=== PATIENT | female | born 1980 | race Caucasian/White ===

== ENCOUNTER → 2021-05-09 10:25 | Outpatient (CLI) | payer OTHER, SELFPAY ==
--- NOTE | ~2021-05-09 | MM_ITS ---
EXAMINATION: MM screening [facility] BI w jhoana HISTORY: Screening TECHNIQUE: Craniocaudal and mediolateral oblique 3-D tomosynthesis images were obtained and synthetic 2-D images were generated. CAD analysis was submitted and interpreted. COMPARISON: 01/20/2019 BREAST PARENCHYMAL COMPOSITION: The breasts are heterogeneously dense, which may obscure small masses . FINDINGS: There is a 2.8 cm mass in the upper central aspect of the right breast, middle third. There is a 2.8 cm mass in the mid outer aspect of the left breast, middle third. IMPRESSION: 1. New bilateral breast masses. 2. Additional mammographic views and possible breast ultrasound are recommended. BI-RADS Category 0: Incomplete: Needs additional imaging evaluation. Reviewed, dictated and finalized at location A. IMPRESSION: 1. New bilateral breast masses. 2. Additional mammographic views and possible breast ultrasound are recommended . BI-RADS Category 0: Incomplete: Needs additional imaging evaluation.
== END ==
PROVIDERS: Visit Provider Nurse Practitioner Adult Health
DX: Z12.31 Encounter for screening mammogram for malignant neoplasm of breast (principal); R92.8 Other abnormal and inconclusive findings on diagnostic imaging of breast
CPT/HCPCS: 77063; 77067

== ENCOUNTER → 2021-05-12 08:54 | Outpatient (CLI) | payer OTHER, SELFPAY ==
--- NOTE | ~2021-05-12 | MMUS_ITS ---
EXAMINATION: MM diagnostic jeanette BI w jhoana, US breast BI complete HISTORY: Follow-up bilateral breast masses TECHNIQUE: Additional 3-D tomosynthesis images of the breasts were performed and synthetic 2-D images were generated. CAD analysis was submitted and interpreted. High resolution complete bilateral breas t ultrasound was performed. COMPARISON: 05/09/2021 BREAST PARENCHYMAL COMPOSITION: The breasts are heterogenously dense, which may obscure small masses. FINDINGS: MAMMOGRAPHIC FINDINGS: There is a 2.7 cm mass in the central aspect of the right breast, middle third. There is a 2.9 cm cir cumscribed radiolucent mass in the upper outer quadrant of the left breast, middle third. There are n o suspicious areas of architectural distortion or calcification. ULTRASOUND: Bilateral complete breast ultrasound: There are innumerable bilateral simple and complicated cysts, l argest in the right breast measuring 2.3 cm at 12:00 near the areola in largest in the left breast at 3:00, 7 cm from the nipple measuring 2.7 cm. No suspicious sonographic masses to suggest malignancy. IMPRESSION: 1. No evidence for malignancy in either breast. Cysts correspond to the mass is identified on mammogr aphy. 2. Routine yearly screening mammogram and regular clinical breast examination are recommended. BI-RADS Category 2: Benign finding(s). Reviewed, dictated and finalized at location A. IMPRESSION: 1. No evidence for malignancy in either breast. Cysts correspond to the mass is identified on mammography. 2. Routine yearly screening mammogram and regular clinical breast examination a re recommended. BI-RADS Category 2: Benign finding(s).
== END ==
PROVIDERS: PCP Nurse Practitioner Adult Health; Visit Provider Nurse Practitioner Adult Health
DX: R92.8 Other abnormal and inconclusive findings on diagnostic imaging of breast (principal)
CPT/HCPCS: 76641; 77062; 77066; G0279

== ENCOUNTER 2021-05-30 19:28 | Emergency (ER) | payer OTHER, SELFPAY ==
[2021-05-30 19:35] VITALS: BP 130/84; PULSE 85; RESP 16; TEMP 36.2; O2SAT 100
--- NOTE | 2021-05-30 19:42 | ED.FEMALEGU ---
HPI - Female Genitourinary General Chief complaint: Urogenital-Female Stated complaint: UTI Time Seen by Provider: 05/30/21 19:42 Source: patient Mode of arrival: ambulatory Limitations: no limitations History of Present Illness HPI Narrative: elías Scott is a 40 yo female with HTN, diabetic, migraines, depression, who comes to [facility] for dysuria that started today. Also complaining of left lower back pain Related Data Home Medications Medication Instructions Recorded Confirmed amlodipine 05/30/21 metformin mg PO 05/30/21 phentermine mg 05/30/21 rizatriptan mg 05/30/21 semaglutide [Ozempic] mg SUBCUT 05/30/21 sertraline mg 05/30/21 Allergies Allergy/AdvReac Type Severity Reaction Status Date / Time escitalopram Allergy Unknown Unknown Verified 05/30/21 19:30 lisinopril Allergy Unknown Unknown Verified 05/30/21 19:30 Review of Systems Review of Systems: CONSTITUTIONAL: Denies fever, chills, sweats. EYES: Denies visual changes, redness, discharge. ENT: Denies rhinorrhea, congestion, sore throat, otalgia. CARDIOVASCULAR: Denies chest pain, palpitations, edema. RESPIRATORY: Denies dyspnea, wheezing, cough GASTROINTESTINAL: Denies abdominal pain, nausea, vomiting, diarrhea. GENITOURINARY: Has dysuria, hematuria, abnormal discharge SKIN: Denies rash or itching. NEUROLOGIC: Denies numbness, or focal weakness. PSYCHIATRIC: Denies anxiety or depression. Left lower back pain PMFSH Past Medical History Medical History Depression Diabetes HTN (hypertension) Migraine Family History Family History Father Diabetes mellitus Sibling Hypertension Patient's sister is in good health Mother Patient's mother is in good health Social History Social History Smoking status: Never smoker Alcohol intake: current Comments At time of signature, I agree with nursing past medical, surgical, social and family history. There is no relevant family history pertinent to the presenting complaint. Exam Narrative: GENERAL: This is a well-nourished, well-developed patient, in mild distress. HEAD: normocephalic, atraumatic. EYES: Sclera clear/white. Vision is grossly intact. EARS: External ears normal,. Hearing grossly intact. NOSE: External nose normal without nasal discharge, nares without redness, no rhinorrhea. THROAT: Mucous membranes moist, NECK: Neck supple, CARDIOVASCULAR: Regular rate and rhythm without murmurs, gallops, or rubs. RESPIRATORY: Clear to auscultation. Breath sounds equal bilaterally. No wheezes, rales, or rhonchi. GASTROINTESTINAL: Abdomen soft, SKIN: warm, intact with no suspicious lesions or rash, good texture and turgor. NEURO: awake, alert, and oriented to person, place and time. There were no obvious focal neurologic abnormalities. Steady gait EXTREMITIES: Normal range of motion. BACK: Nontender without deformity- L CVA pain Course Course Emergency Course: [facility] dysuria and low left back pain UA dipstick is negative except for 4+ ketones and bilirubin Started on Keflex 500 mg 1 twice daily x5 days-discussed fluid intake especially is a diabetic and taking ibuprofen or Tylenol for pain if it does not improve she should follow-up with her primary care physician Vital Signs Vital signs: Vital Signs Temperature 97.2 F L 05/30/21 19:35 Pulse Rate 85 05/30/21 19:35 Respiratory Rate 16 05/30/21 19:35 Blood Pressure 130/84 05/30/21 19:35 Pulse Oximetry 100 05/30/21 19:35 Temperature 97.2 F L 05/30/21 19:35 Pulse Rate 85 05/30/21 19:35 Respiratory Rate 16 05/30/21 19:35 Blood Pressure 130/84 05/30/21 19:35 Pulse Oximetry 100 05/30/21 19:35 MDM - Female Genitourinary Differential Diagnosis Differential diagnosis: Likely urinary tract infection, cystiti
== END 2021-05-30 19:58 | disposition home or self-care (01) ==
PROVIDERS: Emergency Provider Nurse Practitioner; PCP Nurse Practitioner Adult Health
DX: R30.0 Dysuria (principal); E11.9 Type 2 diabetes mellitus without complications; I10 Essential (primary) hypertension; F32.9 Major depressive disorder, single episode, unspecified
CPT/HCPCS: 81003; 99213; G0463

== ENCOUNTER 2021-12-15 16:53 | Outpatient (CLI) | payer OTHER, SELFPAY ==
--- NOTE | ~2021-12-15 | XR_ITS ---
XR lumbar spine 2-3V DATE: 12/15/2021 17:28 INDICATION: Low back pain TECHNIQUE: Standing AP, lateral and coned lateral lumbosacral views COMPARISON: None FINDINGS: There is mild levoscoliosis of the lumbar spine. There is mild degenerative disc disease at L1-2, L2-3 and L3-4 with minimal retrolisthesis at L3-4. There is moderately prominent degenerative disc disease at L4-5. No fracture or bone destruction is evident. The lumbar pedicles are intact. Tiny sacral iliac joints appear normal. IUD overlies the mid pelvis. IMPRESSION: Mild levoscoliosis Multilevel mild to moderate degenerative disc disease Minimal retrolisthesis at L3-4 Reviewed, dictated and finalized at location A.
--- NOTE | ~2021-12-15 | XR_ITS ---
XR thoracic spine 2V DATE: 12/15/2021 17:27 INDICATION: Mid back pain TECHNIQUE: Standing AP and lateral views COMPARISON: 12/15/2021 cervical spine FINDINGS: There is slight scoliosis and mild degenerative spurring of the thoracic spine. The thoraci c pedicles are intact. No fracture or bone destruction or dislocation or paraspinal soft tissue thick ening. IMPRESSION: Slight scoliosis and mild degenerative change of the thoracic spine Reviewed, dictated and finalized at location A.
--- NOTE | ~2021-12-15 | XR_ITS ---
XR_CERV2-3V_CR DATE: 12/15/2021 17:27 INDICATION: Neck pain TECHNIQUE: Standing AP, lateral, swimmer's and open-mouth views COMPARISON: None FINDINGS: C1 and C2 are normally aligned and the odontoid process is intact. No fracture or dislocation or locked facet or prevertebral soft tissue swelling. There is mild degenerative disc disease with posterior spurring at C4-5. There is minimal anterolisthesis and moderate degenerative disc disease at C5-6 and C6-7. IMPRESSION: Multilevel degenerative disc disease, most prominent at C5-6 and C6-7, with minimal anter olisthesis at each of these levels Posterior spurring at C4-5 Reviewed, dictated and finalized at Location A. Reviewed, dictated and finalized at location A. IMPRESSION: Multilevel degenerative disc disease, most prominent at C5-6 and C6 -7, with minimal anterolisthesis at each of these levels Posterior spurring at C4-5
== END 2021-12-15 16:54 ==
PROVIDERS: PCP Nurse Practitioner Adult Health; Visit Provider Chiropractor
DX: M54.50 Low back pain, unspecified (principal); M41.86 Other forms of scoliosis, lumbar region; M51.36 Other intervertebral disc degeneration, lumbar region; M50.822 Other cervical disc disorders at C5-C6 level; M43.12 Spondylolisthesis, cervical region; M77.8 Other enthesopathies, not elsewhere classified
CPT/HCPCS: 72040; 72070; 72100

== ENCOUNTER 2022-11-23 17:28 | Emergency (ER) | payer BC, SELFPAY ==
--- NOTE | 2022-11-23 17:29 | ED.URI ---
HPI - URI/Sore Throat General Chief Complaint: Upper Respiratory Infection Stated Complaint: Ears/Sinus Time Seen by Provider: 11/23/22 17:29 Source: patient Mode of arrival: ambulatory Limitations: no limitations History of Present Illness HPI Narrative: Ancelmo is a 41-year-old female patient presenting to clinic today with complaints left ear pain and sinus pressure x6 days. She reports she also had some body aches and chills however no fever. MD elicited complaint: cough, rhinorrhea, nasal congestion, sinus pain and other (Left ear pain) Related Data Home Medications Medication Instructions Recorded Confirmed amlodipine 5 mg tablet 5 mg PO DAILY 05/30/21 11/23/22 metformin 500 mg tablet,extended 500 mg PO BID 05/30/21 11/23/22 release 24 hr Allergies Allergy/AdvReac Type Severity Reaction Status Date / Time lisinopril Allergy Intermediate Swelling Verified 11/23/22 17:37 escitalopram Allergy Unknown Unknown Verified 11/23/22 17:37 Review of Systems Review of Systems: Pertinent positives per HPI. Patient denies any fever, chills, rash, headache, visual changes, dizziness, cough, shortness of breath, chest pain, palpitations, nausea, vomiting, diarrhea, constipation, abdominal pain, or any urinary issues. PMFSH Past Medical History Medical History Depression Diabetes HTN (hypertension) Migraine Family History Family History Father Diabetes mellitus Sibling Hypertension Patient's sister is in good health Mother Patient's mother is in good health Social History Social History Smoking status: Never smoker Alcohol intake: current Comments At the time of my signature, I reviewed and agree with the nursing past medical, surgical, social, and family history. There is no relevant family history pertinent to the patient complaint. Exam Narrative: General: Well-developed, well nourished, in no apparent distress Head: Normocephalic, atraumatic Eyes: Pupils equally round and reactive to light bilaterally, EOM intact, sclera and conjunctive clear, no discharge, lids normal Ears: Right tMs intact and clear, left TM intact, red, bulging, ear canals clear, no drainage, grossly hearing normal. Nose: Nares patent, clear nasal discharge, no inflammation, no sinus tenderness. Mouth: Oral pharynx without lesions or masses, good dentition, MMM. Postnasal drip Neck: Supple, trachea midline, no enlargement of anterior or posterior cervical nodes, no thyroid masses or goiter palpable. Cardio: Regular rate and rhythm, s1 and s2 normal, no murmur appreciated. Resp: Clear to auscultation bilaterally, no rhonchi, rales, wheezing or rubs Course Course Emergency Course: Portions of this record may have been created with voice recognition software. Level of Care: Express Care Visit Vital Signs Vital signs: Vital Signs Temperature 36.8 C 11/23/22 17:35 Pulse Rate 76 11/23/22 17:35 Respiratory Rate 16 11/23/22 17:35 Blood Pressure 135/91 H 11/23/22 17:35 Pulse Oximetry 99 11/23/22 17:35 Oxygen Delivery Room Air 11/23/22 17:35 Temperature 36.8 C 11/23/22 17:35 Pulse Rate 76 11/23/22 17:35 Respiratory Rate 16 11/23/22 17:35 Blood Pressure 135/91 H 11/23/22 17:35 Pulse Oximetry 99 11/23/22 17:35 Oxygen Delivery Room Air 11/23/22 17:35 Vital signs reviewed MDM - URI/Sore Throat MDM Narrative Medical decision making narrative: At the time of the patient resting comfortably on exam table. I suspect patient has upper respiratory infection and left otitis media. Prescription for amoxicillin and prednisone was sent to pharmacy and supportive measures were discussed with the patient she voiced understanding discharge instructions agrees to treatment plan Differential Diagnosis Differen
[2022-11-23 17:35] VITALS: BP 135/91; PULSE 76; RESP 16; TEMP 36.8; O2SAT 99
== END 2022-11-23 17:45 | disposition home or self-care (01) ==
LOC: EXPCOLL 17:31
PROVIDERS: Emergency Provider Nurse Practitioner Family
DX: H66.92 Otitis media, unspecified, left ear (principal); J06.9 Acute upper respiratory infection, unspecified; E11.9 Type 2 diabetes mellitus without complications; I10 Essential (primary) hypertension; F32.A Depression, unspecified; Z79.84 Long term (current) use of oral hypoglycemic drugs
CPT/HCPCS: 99213; G0463

== ENCOUNTER → 2023-09-17 11:15 | Outpatient (CLI) | payer BC, SELFPAY ==
--- NOTE | ~2023-09-17 | MM_ITS ---
EXAMINATION: MM screening jeanette BI w jhoana HISTORY: Screening TECHNIQUE: Craniocaudal and mediolateral oblique 3-D tomosynthesis images were obtained and synthetic 2-D images were generated. CAD analysis was submitted and interpreted. COMPARISON: Comparison to multiple prior studies sequentially, with oldest reviewed study dated 01/20. BREAST PARENCHYMAL COMPOSITION: The breasts are heterogeneously dense, which may obscure small masses . FINDINGS: There are new asymmetries in the upper outer quadrant of the right breast. There are new ma sses in the upper outer quadrant and central aspect of the left breast. There are no suspicious calci fications or architectural distortion. IMPRESSION: 1. New right breast asymmetries and left breast masses. 2. Additional mammographic views and possible breast ultrasound are recommended. BI-RADS Category 0: Incomplete: Needs additional imaging evaluation. Reviewed, dictated and finalized at location A. IFIED SUBSTANCE ABUSE COUNSELOR IMPRESSION: 1. New right breast asymmetries and left breast masses. 2. Additional mammographic views and possible breast ultrasound are recommended . BI-RADS Category 0: Incomplete: Needs additional imaging evaluation.
== END ==
PROVIDERS: PCP Obstetrics & Gynecology; Visit Provider Nurse Practitioner Family
DX: Z12.31 Encounter for screening mammogram for malignant neoplasm of breast (principal); N63.11 Unspecified lump in the right breast, upper outer quadrant; N63.21 Unspecified lump in the left breast, upper outer quadrant; N63.25 Unspecified lump in the left breast, overlapping quadrants
CPT/HCPCS: 77063; 77067

== ENCOUNTER 2023-10-15 09:21 | Outpatient (CLI) | payer OTHER, SELFPAY ==
--- NOTE | ~2023-10-15 | MMUS_ITS ---
EXAMINATION: MM diagnostic jeanette BI w jhoana, US breast BI limited HISTORY: Right breast asymmetry and left breast masses on screening mammogram TECHNIQUE: Additional 3-D tomosynthesis images of the breasts were performed and synthetic 2-D images were generated. CAD analysis was submitted and interpreted. High resolution limited bilateral breast ultrasound was performed. COMPARISON: 09/17/2023, 05/12/2021, 05/09/2021, 01/20/2019 FINDINGS: MAMMOGRAPHIC FINDINGS: Left breast: There is a 1.4 cm oval, circumscribed, equal density mass in the posterior third of the upper outer quadrant of the breast at the 2:00 location, 9 cm from the nipple. Additional smaller mas ses seen in the middle third of the outer breast corresponding to waxing and waning breast cysts. Right breast: There is a return to baseline fibroglandular appearance with spot compression of the ri ght breast in the area questioned on screening mammogram. ULTRASOUND: There are multiple similar appearing bilateral hypoechoic and anechoic masses of the aubrey sts, consistent with benign findings. Left breast: There is a 1.3 cm cyst at the 2:00 location, 8 cm from the nipple corresponding to the m ammographic finding in question. Right breast: There is a 1.4 cm cyst with thin septation at the 10:00 location, 6 cm from the nipple. IMPRESSION: 1. No mammographic or sonographic evidence of malignancy. 2. Recommend routine screening mammography in one year. BI-RADS Category 2: Benign finding(s). Reviewed, dictated and finalized at location A. D TECHNICAL SUPPORT CONSULTANT IMPRESSION: 1. No mammographic or sonographic evidence of malignancy. 2. Recommend routine screening mammography in one year. BI-RADS Category 2: Benign finding(s).
== END 2023-10-15 09:22 ==
PROVIDERS: PCP Nurse Practitioner Family; Visit Provider Nurse Practitioner Family
DX: N63.0 Unspecified lump in unspecified breast (principal); R92.8 Other abnormal and inconclusive findings on diagnostic imaging of breast
CPT/HCPCS: 76642; 77062; 77066; G0279

== ENCOUNTER 2023-10-28 14:49 | Outpatient (CLI) | payer OTHER, SELFPAY ==
--- NOTE | ~2023-10-28 | XR_ITS ---
EXAMINATION: XR lumbar spine 2-3V DATE: 10/28/2023 15:38 INDICATION: Low back pain, unspecified. TECHNIQUE: 3 views of lumbar spine were obtained. COMPARISON: Lumbar spine radiograph 12/15/2021 FINDINGS: There is 10 degrees levoscoliosis of lumbar spine. Vertebral body heights are normal. There is mildly decreased disc height at L3-L4 and L4-L5. There are endplate osteophytes at most levels. T here is multilevel facet joint osteoarthritis, severe in lower lumbar spine. There is an intrauterine device in expected position. IMPRESSION: 1. Mild lumbar spondylosis. 2. Lumbar levoscoliosis. Reviewed, dictated and finalized at location E. OGICAL CHEMIST
== END 2023-10-28 14:50 ==
PROVIDERS: PCP Nurse Practitioner Adult Health; Visit Provider Nurse Practitioner Adult Health
DX: M43.06 Spondylolysis, lumbar region (principal); M41.86 Other forms of scoliosis, lumbar region
CPT/HCPCS: 72100

== ENCOUNTER 2023-12-20 08:27 | Emergency (ER) | payer OTHER, SELFPAY ==
--- NOTE | ~2023-12-20 | XR_ITS ---
XR abdomen/kub 1V DATE: 12/20/2023 09:09 INDICATION: Right flank pain, microscopic hematuria TECHNIQUE: AP view COMPARISON: None FINDINGS: There is an approximately 1.2 x 3 mm linear calcification overlying the right ureterovesica l junction, likely a right distal ureteral or ureterovesical junction small calcified calculus, parti cularly given the history of right flank pain and microscopic hematuria. No other obvious urinary tract calcification is noted. Bilateral pelvic calcified phleboliths. The psoas shadows are intact. No visceromegaly is evident. No evidence of bowel obstruction. Mild lumbar levoscoliosis. IMPRESSION: Small right ureterovesical junction or distal ureteral calcified calculus is suggested Reviewed, dictated and finalized at Location A. Reviewed, dictated and finalized at location B. IMPRESSION: Small right ureterovesical junction or distal ureteral calcified ca lculus is suggested
--- NOTE | 2023-12-20 08:34 | ED.FEMALEGU ---
HPI - Female Genitourinary General Chief complaint: Urogenital-Female Stated complaint: back pain,increased urination Time Seen by Provider: 12/20/23 08:46 Source: patient and RN notes reviewed Mode of arrival: ambulatory Limitations: no limitations History of Present Illness HPI Narrative: 43-year-old female presents with concern for right flank pain. She reports symptoms started overnight with consistent pain that has no relieving or aggravating factors. She reports urine frequency. Denies dysuria, hematuria, foul-smelling urine, dark colored urine. She denies fever, reports chills. Reports nausea without vomiting. She denies any injury or trauma to her back. MD elicited complaint: back pain Related Data Allergies Allergy/AdvReac Type Severity Reaction Status Date / Time lisinopril Allergy Intermediate Swelling Verified 12/20/23 08:43 Review of Systems Review of Systems: CONSTITUTIONAL: Denies malaise, sweats, or fever. Reports chills CARDIOVASCULAR: Denies chest pain, palpitations, or edema. RESPIRATORY: Denies cough or dyspnea. GASTROINTESTINAL: Denies abdominal pain, nausea, vomiting, diarrhea GENITOURINARY: Denies dysuria, urgency, suprapubic pressure, dysuria. Reports flank pain and urine frequency SKIN: Denies rash or itching. MUSCULOSKELETAL: Reports right back pain. Denies myalgia. All systems reviewed & are unremarkable except as noted in HPI and below PMFSH Past Medical History Medical History BMI 26.0-26.9,adult BMI 27.0-27.9,adult Depression Diabetes HTN (hypertension) Lumbar pain Migraine Family History Family History Father Diabetes mellitus Heart disease Sibling Hypertension Patient's sister is in good health Diabetes mellitus Mother Lung cancer COPD (chronic obstructive pulmonary disease) Social History Social History Smoking status: Former smoker Second hand tobacco smoke exposure: Yes Alcohol intake: current Substance use: never Substance use type: does not use Lack of Transportation: No Lack of Food: Never True Current Housing: I Have Housing Concerned About Future Housing: No Difficulty Paying Gas/Electric Bills: No Difficulty Paying for Meds: No Currently Unemployed: No Education: Associate Degree Difficulty w/ Childcare or Family Care: No Living arrangements: with family Occupation/Education: occupation 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 There is no relevant family history pertinent to the presenting complaint Exam Narrative: GENERAL: Well-appearing, well-nourished, and in no acute distress. HEAD: Normocephalic. EYES: PERRLA, conjunctivae clear. NECK: Supple. No lymphadenopathy CHEST: Clear to auscultation. No respiratory distress. HEART: Regular rate and rhythm. ABDOMEN: Soft, nontender upon palpation, nondistended, normal active bowel sounds, no palpable or pulsatile masses, no guarding. Right CVA tenderness SKIN: Warm, dry, no rash. NEURO: Alert and oriented x3. PSYCH: Normal mood and affect Course Course Emergency Course: Patient is aware of diagnosis, understands and agrees to treatment plan. Anticipatory guidance given. Patient agrees to follow-up as directed and is aware of reasons to seek care at the emergency department. Portions of this record may have been created with voice recognition software Level of Care: Express Care Visit Vital Signs Vital signs: Reviewed. MDM - Female Genitourinary MDM Narrative Medical decision making narrative: Exam findings and UA show no acute concerns or changes; patient is non-toxic
[2023-12-20 08:51] VITALS: BP 146/92; PULSE 79; RESP 16; TEMP 36.6; O2SAT 99
== END 2023-12-20 09:49 | disposition home or self-care (01) ==
PROVIDERS: Emergency Provider Nurse Practitioner; PCP Nurse Practitioner Adult Health
DX: N20.0 Calculus of kidney (principal); Z87.891 Personal history of nicotine dependence; E11.9 Type 2 diabetes mellitus without complications; I10 Essential (primary) hypertension; F32.A Depression, unspecified
CPT/HCPCS: 74018; 81003; 99213; G0463

== ENCOUNTER 2023-12-21 19:51 | Observation (INO) | payer OTHER, SELFPAY ==
--- NOTE | ~2023-12-21 | XR_ITS ---
EXAMINATION: XR retrograde pyelo w/stent RT INDICATION: Right ureterovesicular junction stone TECHNIQUE: 13 intraoperative fluoroscopic images are submitted for review. Total fluoroscopic time wa s 114.7 seconds COMPARISON: CT, 12/21/2023 FINDINGS: Fluoroscopic images demonstrate moderate right hydroureteronephrosis. A right internal uret eral stent is placed in expected position. Please refer to procedure note for full details. IMPRESSION: 1. Please refer to procedure note for full details. Reviewed, dictated and finalized at location F.
--- NOTE | ~2023-12-21 | CT_ITS ---
EXAMINATION: CT abdomen pelvis wo con DATE: 12/21/2023 21:18 INDICATION: concern for R ureteric stone TECHNIQUE: Computed tomography (CT) of the abdomen and pelvis was performed without intravenous contr ast. Automated exposure control and iterative reconstruction technique were employed. The dose-length product was 249.03 mGy-cm. COMPARISON: X-ray abdomen 12/20/2023; MR abdomen 11/24/2017. FINDINGS: Lower thorax: Minimal dependent atelectasis. Liver: Normal. Biliary/Gallbladder: Gallbladder is normal. No bile duct dilation. Pancreas: No mass or duct dilation. Spleen: Normal. Adrenals:No mass. Kidneys: Multiple punctate right midpole calcifications. Mild right perinephric stranding. Mild right hydronephrosis. No suspicious right renal mass. The left kidney is normal. GI tract: No small or large bowel dilation. Normal appendix. Mesentery/Peritoneum: No ascites, mass, or free air. Retroperitoneum: No mass. Pelvis: 3 mm right UVJ stone. Mostly empty urinary bladder. Normal uterus and bilateral ovaries. IUD, in good position. Soft Tissues: Soft tissues and body wall unremarkable. Bones: No acute osseous finding. IMPRESSION: 3 mm right UVJ stone causing mild obstructive uropathy. Reviewed, dictated and finalized at location K.
[2023-12-21 20:30] VITALS: BP 112/73; PULSE 99; RESP 16; TEMP 36.6; O2SAT 100
[2023-12-21 20:38] LABS: Basophils Percent Auto 0.3 % (0.2-1.2); Eosinophils Absolute Auto 0.1 K/mm3 (0-0.3); Eosinophils Percent Auto 0.5 % (0-4.4); Hematocrit 38.9 % (37.0-47.0); Hemoglobin 13.3 g/dL (12.0-15.0); Immature Granulocyte Absolute 0.03 K/mm3 (0.00-0.031); Immature Granulocyte Percent A 0.2 % (0-0.5); Lymphocytes Percent Auto 17.3 % (18.3-44.2); Mean Corpuscular HGB Conc 34.2 g/dl (32-36); Mean Corpuscular Hemoglobin 30.7 pg (26-34); Mean Corpuscular Volume 89.8 fl (80-100); Mean Platelet Volume 10.4 fl (7.4-10.4); Monocytes Absolute Auto 1.4 K/mm3 (0.1-0.6); Monocytes Percent Auto 10.7 % (2.6-8.5); Platelet Count Result 242 k/mm3 (150-375); Red Blood Count 4.33 M/mm3 (4.2-5.4); Red Cell Distribution Width 12.8 % (11.5-14.5); White Blood Count 12.7 K/mm3 (4.5-10.0)
[2023-12-21 20:40] LABS: Appearance Urine Clear (Clear); Bilirubin Urine Negative (Negative); Blood Urine Negative (Negative); Color Urine Yellow (Yellow); Glucose Urine UA Negative (Negative); Ketones Urine Trace mg/dL (Negative); Leukocyte Esterase Ur Negative LEU/UL (Negative); Nitrate Urine Negative (Negative); Protein Urine Negative (Negative); Urobilinogen Urine 0.2 mg/dL (<2.0)
[2023-12-21 20:42] LABS: Add Urine Microscopic? NO
[2023-12-21 20:48] LABS: Alanine Aminotransferase 15 U/L (6-35); Albumin Level 4.4 g/dL (3.5-5.1); Alkaline Phosphatase 52 U/L (38-126); Anion Gap 7 mmol/L (8-16); Aspartate Amino Transferase 19 U/L (14-36); Bilirubin,Total 0.5 mg/dL (0.2-1.3); Blood Urea Nitrogen 19 mg/dL (7-17); Calcium 8.7 mg/dL (8.4-10.2); Carbon Dioxide 23 mmol/L (22-30); Chloride 106 mmol/L (98-107); Estimated CRCL calculation 49 ml/min; Estimated Glomerular Filt Rate 54; Glucose 112 mg/dL (65-110); Potassium 3.3 mmol/L (3.4-5.0); Sodium 136 mmol/L (137-145)
[2023-12-21 22:34] VITALS: BP 160/97; PULSE 67; RESP 18; O2SAT 100
--- NOTE | 2023-12-21 22:50 | ED.FEMALEGU ---
HPI - Female Genitourinary General Chief complaint: Urogenital-Female Stated complaint: kidney stone Time Seen by Provider: 12/21/23 22:32 History of Present Illness HPI Narrative: 43-year-old female presents to the emergency department for right flank pain that radiates into her right abdomen x2 days. Patient states she went to urgent care the day after symptoms started and had a KUB performed which showed a possible kidney stone. She was prescribed Flomax and advised to follow-up with a urologist. Patient states she saw Dr. Orozco yesterday and was advised have an outpatient CT sent down for further evaluation. Unfortunately her insurance required preauthorization and so she was advised to come to the ER for a CT scan. States she was prescribed Toradol by Dr. Orozco but has yet to take it. Patient states she is having pain, however it has improved from earlier today. She reports associated nausea, no emesis. Denies urinary frequency, urgency, dysuria, fever, vomiting, history of kidney stones. Related Data Allergies Allergy/AdvReac Type Severity Reaction Status Date / Time lisinopril Allergy Intermediate Swelling Verified 12/20/23 08:43 Review of Systems Review of Systems: CONSTITUTIONAL: Denies fever, chills, or sweats. EYES: Denies visual changes, redness, or discharge. ENT: Denies rhinorrhea, congestion, sore throat, or otalgia. CARDIOVASCULAR: Denies chest pain, palpitations, or edema. RESPIRATORY: Denies cough or dyspnea. ABDOMINAL: see HPI. GENITOURINARY: See HPI SKIN: Denies rash or itching. MUSCULOSKELETAL: Denies back pain, joint pain, or myalgia. NEUROLOGIC: Denies headache, numbness, or weakness. PSYCHIATRIC: Denies anxiety or depression. [facility] Past Medical History Medical History BMI 26.0-26.9,adult BMI 27.0-27.9,adult Depression Diabetes HTN (hypertension) Lumbar pain Migraine Family History Family History Father Diabetes mellitus Heart disease Sibling Hypertension Patient's sister is in good health Diabetes mellitus Mother Lung cancer COPD (chronic obstructive pulmonary disease) Social History Social History (Reviewed 12/21/23 @ 22:53 by СЕРГЕЙ Harper Smoking status: Former smoker Second hand tobacco smoke exposure: Yes Alcohol intake: current Substance use: never Substance use type: does not use Lack of Transportation: No Lack of Food: Never True Current Housing: I Have Housing Concerned About Future Housing: No Difficulty Paying Gas/Electric Bills: No Difficulty Paying for Meds: No Currently Unemployed: No Education: Associate Degree Difficulty w/ Childcare or Family Care: No Living arrangements: with family Occupation/Education: occupation 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 HEAD: Normocephalic, atraumatic. EYES: PERRLA and EOMI. ENT: Nares clear, no rhinorrhea or epistaxis. Mucous membranes moist. NECK: Supple. CHEST: Clear to auscultation. No respiratory distress. HEART: Regular rate and rhythm. No murmur heard. Normal peripheral pulses. ABDOMEN: Soft, nontender, nondistended, normal active bowel sounds. no rebound, guarding or rigidity. No CVA tenderness. EXTREMITIES: Normal range of motion. No edema. SKIN: Warm, dry, no rash. NEURO: No focal deficits. Alert and oriented x3 Course Vital Signs Vital signs: Vital Signs Temperature 97.8 F 12/21/23 20:30 Pulse Rate 99 12/21/23 20:30 Respiratory Rate 16 12/21/23 20:30 Blood Pressure 112/73 12/21/23 20:30 Pulse Oximetry 100 12/21/23 20:30 Oxygen Delivery Room Air 12/21/23 20:30 Temperature 97.8 F 12/21/23 20:30 Pulse
[2023-12-21] MEDS: POTASSIUM CHLORIDE 20 MEQ PACKET (FOR LIQUID) PO (23:10)
[2023-12-21] MEDS: SODIUM CHLORIDE 0.9% IV 1,000 ML 999 ML IV CONT (23:10)
[2023-12-21] MEDS: ONDANSETRON INJ 4 MG/2 ML VIAL IV PUSH (23:10)
[2023-12-21] MEDS: MORPHINE SULFATE (*CRX) 4 MG/ML INJ IV PUSH (23:12)
--- NOTE | 2023-12-21 23:16 | PC.NURSE ---
while giving pt morphine they requested to only start off with a half dose . only gave 2mg of morphine IV. notified provider and they okay this.
[2023-12-21 23:31] VITALS: BP 153/94
[2023-12-22] VITALS (9 sets, daily range): BP systolic 125–152; BP diastolic 72–98; PULSE 68–108; RESP 12–20; TEMP 35.9–36.8; O2SAT 98–100; BMI 28.0
[2023-12-22] MEDS: SODIUM CHLORIDE 0.9% IV 1,000 ML 100 ML IV CONT ×2 (00:09→09:40)
[2023-12-22] MEDS: MORPHINE SULFATE (*CRX) 2 MG/ML INJ IV PUSH (00:27)
--- NOTE | 2023-12-22 01:36 | PC.NURSE ---
Pt resting comfortably at time of transfer. Pt not in a gown, would prefer to remain in her personal clothes and sweatshirt at this time.
--- NOTE | 2023-12-22 01:50 | ADMGEN ---
This patient, Ancelmo Scott, was admitted to [facility] Surg Room 328-01. Patient/family oriented to hospital policies and general routines including ID bracelet, bed and alarms, visiting hours, pain management, procedures, bathroom and other care routines, personal items, smoking policy, room service/diet, and visiting hours. Information on how to activate the Rapid Response Team has been discussed. Patient/Family are encouraged to report perceived risks to care and to ask questions if they do not understand what they are told or what they should do.
[2023-12-22] MEDS: HYDROmorphone HCL INJ (*CRX) 1 MG/ML SYR IV PUSH (02:19)
[2023-12-22] MEDS: ONDANSETRON INJ 4 MG/2 ML VIAL IV PUSH (05:00)
[2023-12-22 07:59] LABS: Glucose Point of Care 123 mg/dl (65-105)
--- NOTE | 2023-12-22 09:36 | WPDURCON ---
Assessment and Plan Assessment and plan (1) Calculus, ureteral: Code(s): N20.1 - Calculus of ureter Status: Acute Assessment and Plan: Patient admitted overnight for hydration analgesics Cystoscopy, right ureteroscopy with stone extraction, possible laser lithotripsy, retrograde pyelography and stent placement. This will be done by Dr. Desai. Urology Consult Note HPI Date Seen: 12/22/23 Requesting Physician: Amparo Simeon MD Primary Care Provider: UNKNOWN,DOCTOR Consult Narrative Narrative: Ancelmo Scott is a 43 year old female without prior significant urological history who has 3 days of intermittent right flank pain. Imaging had an urgent care suggested a 3 mm right distal ureteral stone that was confirmed during an ER visit last night. She has had some nausea but no vomiting. She has had no fever chills or gross hematuria. Review of Systems Cardiovascular: Cardiovascular: Denies chest pain, Denies lightheadedness, Denies palpitations and Denies dyspnea Respiratory: Respiratory: Denies dyspnea Gastrointestinal: Gastrointestinal: Denies diarrhea, Denies nausea and Denies vomiting Genitourinary: Genitourinary: Denies hematuria and Denies dysuria Endocrine: Endocrine: Denies palpitations [facility] Past Medical History Medical History BMI 26.0-26.9,adult BMI 27.0-27.9,adult Depression Diabetes HTN (hypertension) Lumbar pain Migraine Family History Family History Father Diabetes mellitus Heart disease Sibling Hypertension Patient's sister is in good health Diabetes mellitus Mother Lung cancer COPD (chronic obstructive pulmonary disease) Social History Social History Smoking status: Former smoker Second hand tobacco smoke exposure: Yes Alcohol intake: never Substance use: never Substance use type: does not use Do You Feel Safe in your Home?: Yes Lack of Transportation: YES Lack of Food: Never True Current Housing: I Have Housing Concerned About Future Housing: No Difficulty Paying Gas/Electric Bills: No Difficulty Paying for Meds: No Currently Unemployed: No Education: Associate Degree Difficulty w/ Childcare or Family Care: No Living arrangements: with family Occupation/Education: occupation 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 Gender identity (if verbalized by the patient): Female Spiritual care concerns: No Meds Home Medications and Allergies Home Medications Medication Instructions Recorded Confirmed Type amlodipine 5 mg tablet 5 mg PO DAILY #90 tabs 08/22/23 12/22/23 Rx sertraline 50 mg tablet 50 mg PO DAILY #90 tabs 08/22/23 12/22/23 Rx tirzepatide 7.5 mg/0.5 mL 7.5 mg (0.5 mL) subcut WEEKLY #2 mL 12/07/23 12/22/23 Rx subcutaneous pen injector (Mounjaro) rimegepant 75 mg disintegrating 75 mg PO ONCE PRN migraine 12/14/23 12/22/23 Rx tablet (Nurtec ODT) headache #8 tabs promethazine 25 mg tablet 25 mg PO TID PRN nausea and 12/20/23 12/22/23 Rx vomiting #14 tabs tamsulosin 0.4 mg capsule (Flomax) 0.4 mg PO DAILY #5 caps 12/20/23 12/22/23 Rx metformin 500 mg tablet,extended 500 mg PO BID 12/22/23 12/22/23 History release 24 hr Allergies Allergy/AdvReac Type Severity Reaction Status Date / Time lisinopril Allergy Intermediate Swelling Verified 12/22/23 02:01 Vital Signs Vital Signs - 24 hr 12/21/23 20:30 12/21/23 22:34 12/22/23 00:55 Temperature 97.8 F Pulse Rate 99 67 68 Respiratory Rate 16 18 18 Blood Pressure 112/73 160/97 H Pulse Oximetry 100 100 98 Oxygen Delivery Room Air 12/21/23 23:31 12/22/23 02:35 12/22/23 02:50 Temperature 97.3 F L Pulse Rate 90 Respiratory Rate 20 Blood Pressure 153/94 H 141/80 H Pulse Oximetry 99
[2023-12-22] MEDS: KETOROLAC 30 MG/ML VIAL (*BKC) IV PUSH (09:37)
[2023-12-22] MEDS: LACTATED RINGERS 1,000 ML 30 ML IV CONT ×2 (13:10→14:16)
[2023-12-22 13:15] LABS: Glucose Point of Care 112 mg/dl (65-105)
--- NOTE | 2023-12-22 13:16 | WPDHPUPDATE1 ---
History and Physical Update Update Date/Time: 12/22/23 13:16 History and Physical has been reviewed, including an updated exam of the patient. There are NO changes in the patient's condition. Risks, benefits, and alternatives have been discussed and questions answered. Patient agrees to proceed with procedure.
--- NOTE | 2023-12-22 13:21 | WPDANESEPPF ---
Anes - Initial Pre Proc Eval Procedure: Operation Date: 12/22/23 14:00 Proposed Procedures p Cystoscopy,Right Stone Extraction - Didier Salmon MD Date/Time: 12/22/23 13:21 Surgeon: Amparo Simeon MD Pre Op Diagnosis: Ureteral Calculus Patient Data Age: 43 Gender: F Height: 1.55 m Weight: 67.3 kg Last Vital Signs Temp 36.6 C 12/22/23 12:52 Pulse 75 12/22/23 12:52 Resp 16 12/22/23 12:52 BP 138/79 12/22/23 12:52 Pulse Ox 99 12/22/23 12:52 O2 Del Method Room Air 12/22/23 12:52 Allergies Allergy/AdvReac Type Severity Reaction Status Date / Time lisinopril Allergy Intermediate Swelling Verified 12/22/23 13:10 Home Medications Medication Instructions Recorded Confirmed Type amlodipine 5 mg tablet 5 mg PO DAILY #90 tabs 08/22/23 12/22/23 Rx sertraline 50 mg tablet 50 mg PO DAILY #90 tabs 08/22/23 12/22/23 Rx tirzepatide 7.5 mg/0.5 mL 7.5 mg (0.5 mL) subcut WEEKLY #2 mL 12/07/23 12/22/23 Rx subcutaneous pen injector (Mounjaro) rimegepant 75 mg disintegrating 75 mg PO ONCE PRN migraine 12/14/23 12/22/23 Rx tablet (Nurtec ODT) headache #8 tabs promethazine 25 mg tablet 25 mg PO TID PRN nausea and 12/20/23 12/22/23 Rx vomiting #14 tabs tamsulosin 0.4 mg capsule (Flomax) 0.4 mg PO DAILY #5 caps 12/20/23 12/22/23 Rx metformin 500 mg tablet,extended 500 mg PO BID 12/22/23 12/22/23 History release 24 hr Laboratory Tests 12/21/23 12/22/23 12/22/23 20:33 07:53 13:08 WBC 12.7 H K/mm3 (4.5-10.0) RBC 4.33 M/mm3 (4.2-5.4) Hgb 13.3 g/dL (12.0-15.0) Hct 38.9 % (37.0-47.0) MCV 89.8 fl (80-100) MCH 30.7 pg (26-34) MCHC 34.2 g/dl (32-36) RDW 12.8 % (11.5-14.5) Plt Count 242 k/mm3 (150-375) MPV 10.4 fl (7.4-10.4) Immature Gran % (Auto) 0.2 % (0-0.5) Neut % (Auto) 71.0 % (45.5-73.1) Lymph % (Auto) 17.3 L % (18.3-44.2) [place] % (Auto) 10.7 H % (2.6-8.5) Eos % (Auto) 0.5 % (0-4.4) Baso % (Auto) 0.3 % (0.2-1.2) Lymph # (Auto) 2.20 K/mm3 (0.9-3.2) [place] # (Auto) 1.4 H K/mm3 (0.1-0.6) Eos # (Auto) 0.1 K/mm3 (0-0.3) Baso # (Auto) 0.0 K/mm3 (0.0-0.1) Abs Immat Gran (auto) 0.03 K/mm3 (0.00-0.031) Absolute Neuts (auto) 9.0 H K/mm3 (1.3-6.7) Absolute Nucleated RBC 0.000 K/mm3 (0.0-0.012) Nucleated RBC % 0.0 % (0.0-0.2) Sodium 136 L mmol/L (137-145) Potassium 3.3 L mmol/L (3.4-5.0) Chloride 106 mmol/L (98-107) Carbon Dioxide 23 mmol/L (22-30) Anion Gap 7 L mmol/L (8-16) BUN 19 H mg/dL (7-17) Creatinine 1.10 H mg/dL (0.7-1.0) Estim Creat Clear Calc 49 ml/min Estimated GFR 54 L (59 - ) Glucose 112 H mg/dL (65-110) POC Capillary Glucose 123 H mg/dl 112 H mg/dl (65-105) (65-105) Calcium 8.7 mg/dL (8.4-10.2) Total Bilirubin 0.5 mg/dL (0.2-1.3) AST 19 U/L (14-36) ALT 15 U/L (6-35) Alkaline Phosphatase 52 U/L (38-126) Total Protein 7.0 g/dL (6.3-8.2) Albumin 4.4 g/dL (3.5-5.1) Urine Color Yellow (Yellow) Urine Appearance Clear (Clear) Urine pH 5.0 (5.0-9.0) Ur Specific Stanley 1.020 (1.001-1.035) Urine Protein Negative mg/dL (Negative) Urine Glucose (UA) Negative mg/dL (Negative) Urine Ketones Trace H mg/dL (Negative) Ur Blood (Man) Negative (Negative) Urine Nitrate Negative (Negative) Urine Bilirubin Negative (Negative) Urine Urobilinogen 0.2 mg/dL (<2.0) Leukocyte Esterase Rfl Negative JAVI/UL (Negative) Patient hx anesthesia problems: none Fami
[2023-12-22] MEDS: ceFAZolin 2 GM/D5W 50 ML 2 GM/50 ML BAG IVPB (13:27)
[2023-12-22] MEDS: LIDOCAINE HCL 2% JELLY 5 ML TUBE 1 APPLIC MUCOUS MEM (14:09)
--- NOTE | 2023-12-22 14:09 | W.PM.PROC2 ---
Procedure Note - Detailed Date of Procedure 12/22/23 Pre-op Diagnosis Ureteral Calculus Post-op Diagnosis Other (Right hydronephrosis, distal ureteral narrowing) Procedure Performed Cystoscopy, right ureteroscopy, retrograde pyelogram, right ureteral stent insertion Surgeon Didier Salmon MD Anesthesia General Findings Narrowing in the right distal ureter at the location of previous stone. Moderate/severe right hydroureteronephrosis Description of Procedure Informed consents obtained. Patient taken the operating. She was given preoperative IV antibiotics. She was induced anesthesia. She was prepped draped normal sterile fashion. A 22 F cystoscope was inserted through the urethra the bladder. We inspected the bladder there were no mucosal abnormalities. We then cannulated the right distal ureter with a Sensor wire. We then dilated the distal ureter the 810 coaxial dilator. At this point we advanced a semi rigid ureteral scope into the distal ureter approximately 2cm above the ureterovesical junction we encountered a narrowed area that was tight but did accommodate the the scope. We performed a retrograde pyelogram that revealed moderate/severe hydronephrosis with ureteral dilation and some corkscrewing of the proximal ureter. We then inspected the distal 2/3 of the ureter with the semi rigid scope and no stones identified. Over a wire we then placed a flexible ureteral scope and inspected each calyx of the kidney. A retrograde pyelogram was then performed again and inspection of each calyx did not reveal stone. We then inspected the length of the ureter with the flexible scope and no stone was seen. Given the severity of hydronephrosis and narrowing in the distal ureter, we elected to place a stent. A 4.8 F stent was placed with a curl in the renal pelvis and a curl in the bladder. The bladder was then emptied 10cc of lidocaine were instilled patient awakened recovery in stable condition. Plan stent removal in 1 to 2 weeks. Recommend a renal ultrasound 1 after stent removal to ensure there is residual hydronephrosis. Urine Output 500 Pathology None sent Complications No immediate complications Condition Stable Disposition PACU
[2023-12-22 14:27] LABS: Glucose Point of Care 90 mg/dl (65-105)
--- NOTE | 2023-12-23 14:05 | PM.DS ---
DS: Admitting Diagnosis Discharge Date 12/22/23 Admitting Diagnosis Right ureteral calculus DS: Discharge Diagnosis Discharge Diagnosis (1) Calculus, ureteral: Code(s): N20.1 - Calculus of ureter Status: Acute DS: Summary Hospital Course Hospital Course: Patient was admitted with a painful right distal ureteral stone at the ureterovesical junction. Overnight she was hydrated and received appropriate analgesics. The day Dr. Desai did right ureteroscopy and found findings consistent with a recently passed ureteral stone with residual ureteral edema. Ureteral stent was placed. Later that afternoon she was comfortable and tolerating a diet, answer decision for discharge. Time Spent with Patient Time attestation: Total time spent providing and/or coordinating discharge services: Exam Const: General: no acute distress Resp: Effort & Inspection: normal respiratory effort GI: Inspection: non-distended GI Palp: No abdominal tenderness and No Guarding due to palpation present (GI) Auscultation: normal bowel sounds DS: Data Data Completed and Pending Labs on day of discharge: Labs from last 24 hours 12/22/23 14:23 POC Capillary Glucose 90 Discharge Plan Discharge Attending physician on discharge: Amparo Simeon V. Consulting providers: Rick Dumont; Pradeep Decker; Pedro Schneider Discharging Clinician: Stoney Orozco Patient Disposition: Home, Self-Care Activity: other - see discharge instructions Diet: other - see discharge instructions Discharge Instructions: 1) Activity: no driving or important decisions x24 hours. 2) Diet: resume your normal, pre-admission diet. 3) Follow-up: 1-2 weeks / call for appointment ([phone]). Patient Instructions: Antibiotic Form Stand Alone Forms: General Discharge Information Follow-up/Referrals: Stoney Orozco MD [Physician] - Discharge Medications: New ketorolac 10 mg tablet 10 mg PO Q6H 5 Days Qty: 20 0RF Continued tamsulosin [Flomax] 0.4 mg capsule 0.4 mg PO DAILY Qty: 5 0RF Patient Comments: new med given from urgent care promethazine 25 mg tablet 25 mg PO TID PRN (Reason: nausea and vomiting) Qty: 14 0RF Patient Comments: new med from urgent care metformin 500 mg tablet extended release 24 hr 500 mg PO BID sertraline 50 mg tablet 50 mg PO DAILY Qty: 90 0RF amlodipine 5 mg tablet 5 mg PO DAILY Qty: 90 0RF Mounjaro 7.5 mg/0.5 mL pen injector 7.5 mg subcut WEEKLY Qty: 2 0RF Rx Instructions: tuesdays Nurtec ODT 75 mg tablet,disintegrating 75 mg PO ONCE PRN (Reason: migraine headache) Qty: 8 0RF Rx Instructions: as a single dose Date of admission: 12/21/23 23:43 Primary Care Provider: UNKNOWN,DOCTOR Admitting Provider: Stoney Orozco Attending physician on admission: Stoney Orozco Condition: Stable
== END 2023-12-22 19:01 | disposition home or self-care (01) ==
LOC: ANHED 23:14 → ANH3MEDSUR 12-22 01:07
PROVIDERS: Emergency Medicine; Internal Medicine; Urology; Admitting Provider Urology; Emergency Provider Physician Assistant; Visit Provider Urology
PROC: (CPT 52352; principal; 2023-12-22 14:00)
DX: N13.2 Hydronephrosis with renal and ureteral calculous obstruction (principal); I10 Essential (primary) hypertension; F32.A Depression, unspecified; E11.9 Type 2 diabetes mellitus without complications; G43.909 Migraine, unspecified, not intractable, without status migrainosus; F10.90 Alcohol use, unspecified, uncomplicated; Z79.84 Long term (current) use of oral hypoglycemic drugs; Z87.891 Personal history of nicotine dependence; Z79.899 Other long term (current) drug therapy
CPT/HCPCS: 52332; 36415; 74176; 74420; 80053; 81025; 82948; 85025; 96361; 96374; 96375; 99285; A9270; C1769; C2617; G0378; J0690; J1170; J1885; J2250; J2270; J2405; J3010; J7030; J7120; Q9966

== ENCOUNTER 2025-02-16 06:51 | Outpatient (CLI) | payer BC, SELFPAY ==
--- NOTE | ~2025-02-16 | MM_ITS ---
EXAMINATION: MM screening jeanette BI w jhoana HISTORY: Screening TECHNIQUE: Craniocaudal and mediolateral oblique 3-D tomosynthesis images were obtained and synthetic 2-D images were generated. CAD analysis was submitted and interpreted. COMPARISON: Comparison to multiple prior studies sequentially, with oldest reviewed study dated 01/20. BREAST PARENCHYMAL COMPOSITION: Dense: The breasts are heterogeneously dense, which may obscure small masses FINDINGS: There is no evidence of suspicious mass, calcification, or architectural distortion to sugg est malignancy in either breast. There has been no suspicious interval change. IMPRESSION: 1. No mammographic evidence of malignancy. 2. Recommend routine screening mammography in one year. BI-RADS Category 1: Negative Reviewed, dictated and finalized at location B.
== END 2025-02-16 06:52 | disposition home or self-care (01) ==
LOC: MICIMG 02-19 06:53
PROVIDERS: PCP Obstetrics & Gynecology; Visit Provider Obstetrics & Gynecology
DX: Z12.31 Encounter for screening mammogram for malignant neoplasm of breast (principal)
CPT/HCPCS: 77063; 77067

== ENCOUNTER 2025-09-04 00:50 | Day surgery (SDC) | payer BC, SELFPAY ==
[2025-08-16 12:54] VITALS: BMI 21.7
[2025-09-04 09:35] VITALS: BP 132/91; PULSE 104; RESP 18; O2SAT 100; BMI 21.9
[2025-09-04 09:41] LABS: BEDSIDEPREGUCG Negative (Negative)
[2025-09-04] MEDS: LACTATED RINGERS 1,000 ML 150 ML IV CONT (09:51)
--- NOTE | 2025-09-04 09:55 | P.PNAN_ITS ---
Anes - Initial Pre Proc Eval Procedure: Operation Date: 09/04/25 11:00 Proposed Procedures p Screening Colonoscopy - Yonis Polk MD Date/Time: 09/04/25 09:55 Surgeon: Yonis Polk MD Pre Op Diagnosis: Screening Patient Data Age: 44 Gender: F Height: 1.55 m Weight: 52.7 kg Last Vital Signs Pulse 104 H 09/04/25 09:35 Resp 18 09/04/25 09:35 BP 132/91 H 09/04/25 09:35 Pulse Ox 100 09/04/25 09:35 O2 Del Method Room Air 09/04/25 09:35 Allergies Allergy/AdvReac Type Severity Reaction Status Date / Time lisinopril Allergy Intermediate Swelling Verified 09/04/25 09:34 Home Medications ?Medication ?Instructions ?Recorded ?Confirmed ?Type atogepant 60 mg tablet (Qulipta) 60 mg PO DAILY #90 ta bs 01/04/25 09/04/25 Rx rizatriptan 10 mg disintegrating See Rx Instructions P O .COMPLEX 06/06/25 08/23/25 Rx tablet #10 tabs empagliflozin 25 mg tablet 25 mg PO DAILY #90 tabs 09/04/25 Rx (Jardiance) sertraline 50 mg tablet 50 mg PO DAILY #90 tabs 1006/2809/04/25 Rx tirzepatide 12.5 mg/0.5 mL 12.5 mg (0.5 mL) subcut WEE KLY #2 08/01/25 08/23/25 Rx subcutaneous pen injector mL cholecalciferol (vitamin D3) 1,250 1,250 mcg PO WEEKLY #8 caps 08/23/25 09/04/25 Rx mcg (50,000 unit) capsule Laboratory Tests 09/04/25 09/04/25 09:35 09:44 POC Capillary Glucose 100 mg/dl (65-105) POC Urine HCG, Qual Negative (Negative) Patient hx anesthesia problems: none Family hx anesthesia problems: none Results Review: All pre-operative results and documents have been reviewed as part of the pre- operative evaluation. [facility] Past Medical History Medical History Fatigue Lumbar pain Depression Migraine Diabetes HTN (hypertension) Family History Family History Father Diabetes mellitus Heart disease Sibling Hypertension Patient's sister is in good health Diabetes mellitus Mother Lung cancer COPD (chronic obstructive pulmonary disease) Social History Social History Smoking status: Former smoker Tobacco type: cigarettes Second hand tobacco smoke exposure: Yes Alcohol intake: never Substance use: never Substance use type: does not use Lack of Transportation: No Lack of Food: Never True Current Housing: I Have Housing Concerned About Future Housing: No Difficulty Paying Gas/Electric Bills: No Difficulty Paying for Meds: No Currently Unemployed: No Education: Associate Degree Difficulty w/ Childcare or Family Care: No Living arrangements: with family Occupation/Education: occupation 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 Informed Consent: The patient's anesthetic plan and its attendant risks and benefits were discussed with the patient/family/POA. Questions were solicited and answers provided to the satisfaction of the patient/family/POA.
--- NOTE | 2025-09-04 10:21 | PM.IMHP2 ---
H&P: HPI History of Present Illness Date/Time: 09/04/25 10:21 Chief Complaint: Screening colonoscopy Narrative: This is the patient's first colonoscopy. There are no GI symptoms and there is no family history of colorectal cancer. Review of Systems Review of Systems: All systems reviewed & are unremarkable except as noted in HPI and below PMFSH Past Medical History Medical History Fatigue Lumbar pain Depression Migraine Diabetes HTN (hypertension) Family History Family History Father Diabetes mellitus Heart disease Sibling Hypertension Patient's sister is in good health Diabetes mellitus Mother Lung cancer COPD (chronic obstructive pulmonary disease) Social History Social History Smoking status: Former smoker Tobacco type: cigarettes Second hand tobacco smoke exposure: Yes Alcohol intake: never Substance use: never Substance use type: does not use Lack of Transportation: No Lack of Food: Never True Current Housing: I Have Housing Concerned About Future Housing: No Difficulty Paying Gas/Electric Bills: No Difficulty Paying for Meds: No Currently Unemployed: No Education: Associate Degree Difficulty w/ Childcare or Family Care: No Living arrangements: with family Occupation/Education: occupation 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 Gender identity (if verbalized by the patient): Female Spiritual care concerns: No Meds Home Medications and Allergies Home Medications ?Medication ?Instructions ?Recorded ?Confirmed ?Type atogepant 60 mg tablet (Qulipta) 60 mg PO DAILY #90 tabs 01/04/25 09/04/25 Rx rizatriptan 10 mg disintegrating See Rx Instructions PO .COMPLEX 06/06/25 08/23/25 Rx tablet #10 tabs empagliflozin 25 mg tablet 25 mg PO DAILY #90 tabs 08/01/25 09/04/25 Rx (Jardiance) sertraline 50 mg tablet 50 mg PO DAILY #90 tabs 08/01/25 09/04/25 Rx tirzepatide 12.5 mg/0.5 mL 12.5 mg (0.5 mL) subcut WEEKLY #2 08/01/25 08/23/25 Rx subcutaneous pen injector mL cholecalciferol (vitamin D3) 1,250 1,250 mcg PO WEEKLY #8 caps 08/23/25 09/04/25 Rx mcg (50,000 unit) capsule Allergies Allergy/AdvReac Type Severity Reaction Status Date / Time lisinopril Allergy Intermediate Swelling Verified 09/04/25 09:34 Vital Signs Vital Signs - 24 hr 09/04/25 09:35 Pulse Rate 104 H Respiratory Rate 18 Blood Pressure 132/91 H Pulse Oximetry 100 Oxygen Delivery Room Air Exam Const: General: cooperative and healthy appearing Resp: Effort & Inspection: normal respiratory effort and able to speak in complete sentences Auscultation: clear to auscultation bilaterally Cardio: Rate: regular rate Rhythm: regular rhythm GI: Inspection: normal to inspection GI Palp: No No hepatosplenomegaly present Auscultation: normal bowel sounds Rectal Exam: deferred Skin: General skin exam: normal color Psych: Appearance: grossly normal Mental Status: mental status grossly normal Assessment and Plan Assessment and plan (1) Encounter for screening colonoscopy: Code(s): Z12.11 - Encounter for screening for malignant neoplasm of colon Status: Acute Prior Studies I have reviewed the following patient records and this information was taken into consideration when formulating the assessment and plan.: previous labs, previous ER visits, previous hospitalizations and previous clinic visits
[2025-09-04 10:47] VITALS: BP 133/93; PULSE 100; RESP 27; O2SAT 100
[2025-09-04 10:57] VITALS: BP 127/90; PULSE 99; RESP 21; O2SAT 100
[2025-09-04 11:07] VITALS: BP 137/94; PULSE 97; RESP 17; O2SAT 100
== END 2025-09-04 11:18 | disposition home or self-care (01) ==
PROVIDERS: Anesthesiology; PCP Family Medicine; Referring Provider Obstetrics & Gynecology; Visit Provider Internal Medicine Gastroenterology
PROC: 0DJD8ZZ Inspection of Lower Intestinal Tract, Via Natural or Artificial Opening Endoscopic (ICD-10-PCS; CPT 45378; principal; 2025-09-04 11:00)
DX: Z12.11 Encounter for screening for malignant neoplasm of colon (principal); E11.9 Type 2 diabetes mellitus without complications; Z87.891 Personal history of nicotine dependence
CPT/HCPCS: 45378; 82948; J2704; J7120